=== PATIENT | female | born 1945 ===

== ENCOUNTER 2017-02-12 17:19 | Emergency (ER) | payer MEDICARE ==
[2017-02-12 17:20] VITALS: BMI 26.9
[2017-02-12 18:12] VITALS: BP 133/76; PULSE 78; RESP 16; TEMP 97.7; O2SAT 95
[2017-02-12 18:52] LABS: URINE BILIRUBIN SMALL (NEGATIVE); URINE BLOOD LARGE (NEGATIVE); URINE GLUCOSE (UA) NEGATIVE (NEGATIVE); URINE KETONE TRACE mg/dL (NEGATIVE); URINE LEUKOCYTE ESTERASE MODERATE Leu/uL (NEGATIVE); URINE PROTEIN >=300 mg/dL (<30 mg/dL)
[2017-02-12 19:05] LABS: URINE APPEARANCE CLOUDY (CLEAR); URINE COLOR YELLOW (YELLOW)
[2017-02-12 19:16] LABS: URINE RBC 25 - 30 /hpf (0-2); URINE WBC TNTC /hpf (0-6)
[2017-02-12 19:17] LABS: URINE BACTERIA MANY (NEG)
--- NOTE | 2017-02-12 19:23 | ED PDOC ---
Arrival/HPI - General Chief Complaint: Female Genitourinary Time Seen by Provider: 02/12/17 19:19 Historian: Patient - History of Present Illness Narrative History of Present Illness (Text): 02/12/17 19:20 A 71 year old female presents to the emergency department complaining of suprapubic pain and dysuria for the past few weeks. Patient reports she was seen by her PMD and urologist for same complaints. Patient was placed on Cipro, with no relief of symptoms. Patient denies any fever, chills or any other complaints. PMD: Dr. Mcbride Urologist: Dr. Ma Time/Duration: < month Symptom Course: Unchanged Quality: Other Context: Home Past Medical History - Provider Review Nursing Documentation Reviewed: Yes - Infectious Disease Hx of Infectious Diseases: None - Cardiac Hx Cardiac Disorders: Yes Hx Hypertension: Yes - Pulmonary Hx Respiratory Disorders: No - Neurological Hx Neurological Disorder: No - HEENT Hx HEENT Disorder: No - Renal Hx Renal Disorder: No - Endocrine/Metabolic Hx Endocrine Disorders: No - Hematological/Oncological Hx Blood Disorders: No - Integumentary Hx Dermatological Disorder: No - Musculoskeletal/Rheumatological Hx Musculoskeletal Disorders: Yes Hx Falls: Yes - Gastrointestinal Hx Gastrointestinal Disorders: Yes Hx Gall Bladder Disease: Yes (CHOLECYSTECTOMY) - Genitourinary/Gynecological Hx Genitourinary Disorders: Yes (HYDRONEPHROSIS) - Psychiatric Hx Psychophysiologic Disorder: Yes Hx Substance Use: No Other/Comment: insomnia - Past Surgical History Past Surgical History: No Previous - Surgical History Hx Cholecystectomy: Yes Hx Tubal Ligation: Yes - Anesthesia Hx Anesthesia: Yes Hx Anesthesia Reactions: No Hx Malignant Hyperthermia: No - Suicidal Assessment Feels Threatened In Home Enviroment: No Family/Social History - Physician Review Nursing Documentation Reviewed: Yes Family/Social History: No Known Family HX Smoking Status: Never Smoked Hx Alcohol Use: No Hx Substance Use: No Hx Substance Use Treatment: No Allergies/Home Meds Allergies/Adverse Reactions: Allergies moxifloxacin HCl [From Avelox] Allergy (Verified 02/12/17 18:06) RASH Home Medications: Home Meds Medication Instructions Recorded Confirmed Calcium Carbonate/Vitamin D3 1 tab PO DAILY 10/26/15 02/12/17 [Calcium + Vitamin D Tablet] Naproxen [Naprosyn] 500 mg PO BID 10/26/15 02/12/17 Zolpidem Tartrate [Ambien] 10 mg PO HS 10/26/15 02/12/17 amLODIPine [Norvasc] 5 mg PO DAILY 10/26/15 02/12/17 Physical Exam - Physical Exam Narrative Physical Exam (Text): - Review of Systems Constitutional: Normal. absent: Fatigue, Weight Change, Fevers Eyes: Normal ENT: denies sore throat, denies tristhmus Respiratory: Normal. absent: SOB, Cough, Sputum Cardiovascular: absent: Chest Pain, Palpitations, Syncope Gastrointestinal: (+) Suprapubic pain absent: Diarrhea, Nausea, Vomiting Genitourinary: (+) Dysuria absent: Frequency, Hematuria, vaginal bleeding Musculoskeletal: Normal. absent: Arthralgias, Back Pain, Neck Pain Skin: no rashes, no erythema Neurological: absent: Focal Weakness Endocrine: Normal Hemo/Lymphatic: Normal Psychiatric: No suicidal or homicidal ideations Physical exam Patient appears age appropriate in no distress, speaking full sentences without difficulty - Systems Exam Head: Present: Atraumatic, Normocephalic Pupils: Present: PERRL Extroacular Muscles: Present: EOMI Conjunctiva: Present: Normal Mouth: Present: Moist Mucous Membranes Neck: Present: Normal Range of Motion. No: MIDLINE TENDERNESS, Paraspinal Tenderness Respiratory/Chest: Present: Clear to Auscultation, Good Air Exchange. No: Respiratory Distress, Accessory Muscle Use, Tachypneic Cardiovascular: Present: Regular Rate and Rhythm, Normal S1, S2, Peripheal Pulses Present. No: Murmurs Abdomen: Present: Normal Bowel Sounds. No: Tenderness, Distention, Peritoneal Signs, Rebound, Guarding Back: Present: Normal Inspection. No: Midline Tenderness, Paraspinal Tenderness Upper Extremity: Present: Normal Inspection. No: Cyanosis, Edema Lower Extremity: Present: Normal Inspection. No: Edema Neurological: Present: GCS=15, Speech Normal, cranial nerves II through XII fully intact with no cerebellar abnormality, neurosensory fully intact. No focal neurological deficits. Skin: Present: Warm, Dry, Normal Color. No: Rashes Lymphatic: Present: OX3, NI, NC Psychiatric: Present: Alert, Oriented x 3, Normal Insight, Normal Concentration Vital Signs Reviewed: Yes Vital Signs Temp Pulse Resp BP Pulse Ox 02/12/17 18:12 97.7 F 78 16 133/76 95 Temperature: Afebrile Blood Pressure: Normal Pulse: Regular Respiratory Rate: Normal Appearance: Positive for: Well-Appearing, Non-Toxic, Comfortable Pain Distress: None Mental Status: Positive for: Alert and Oriented X 3 Medical Decision Making ED Course and Treatment: 02/12/17 19:20 Impression: A 71 year old female with suprapubic pain and dysuria for the past 2 weeks. Pt has been on cipro with no symptomatic relief. Physical exam unremarkable. Pt afebrile, well appearing, non-toxic, and in no distress. Plan: -- Urine culture -- Urinalysis -- Reassess and disposition Progress Notes: UA shows infection, likely the cause of pt's symptoms was given Rx for pyridium and macrobid pt informed of pyridium side effects pt also instructed to f/u with Sergey Mcbride and Anil outpatient states she feels comfortable being dc'd home with outpatient f/u Pt states she understands to return to the ER right away for new or worsening symptoms or for inability to f/u with PMD or specialist as instructed. Patient states that she fully agrees with and understands discharge instructions. States that she agrees with the plan and disposition. Verbalized and repeated discharge instructions and plan. I have given the patient opportunity to ask any additional questions. - Lab Interpretations Lab Results: Lab Results 02/12/17 18:42: Urine Color Yellow, Urine Appearance Cloudy, Urine pH 6.0, Ur Specific Fabens >= 1.030, Urine Protein >=300 H, Urine Glucose (UA) Negative, Urine Ketones Trace H, Urine Blood Large H, Urine Nitrate Positive H, Urine Bilirubin Small H, Urine Urobilinogen 1.0 H, Ur Leukocyte Esterase Moderate H, Urine RBC 25 - 30, Urine WBC Tntc, Urine Bacteria Many - Scribe Statement The provider has reviewed the documentation as recorded by the Shahriar Collado Provider Scribe Attestation: All medical record entries made by the Scribjose were at my direction and personally dictated by me. I have reviewed the chart and agree that the record accurately reflects my personal performance of the history, physical exam, medical decision making, and the department course for this patient. I have also personally directed, reviewed, and agree with the discharge instructions and disposition. Disposition/Present on Arrival - Present on Arrival Any Indicators Present on Arrival: No History of DVT/PE: No History of Uncontrolled Diabetes: No Urinary Catheter: No History of Decub. Ulcer: No History Surgical Site Infection Following: None - Disposition Have Diagnosis and Disposition been Completed?: Yes Diagnosis: UTI (urinary tract infection) Disposition: HOME/ ROUTINE Disposition Time: 19:25 Patient Plan: Discharge Condition: GOOD Discharge Instructions (ExitCare): Urinary Tract Infection in Women (ED), Dysuria (ED) Additional Instructions: PLEASE RETURN TO THE EMERGENCY DEPARTMENT FOR NEW OR WORSENING SYMPTOMS. RETURN RIGHT AWAY IF YOU CANNOT FOLLOW UP WITH YOUR PRIMARY CARE DOCTOR, CLINIC, OR SPECIALIST IN 1-2 DAYS. Prescriptions: Nitrofurantoin Macrocrystals [Macrobid] 100 mg PO BID #14 cap Phenazopyridine HCl [Pyridium] 100 mg PO TID #6 tab Referrals: Jacqueline Mcbride MD [Primary Care Provider] - Follow up with primary Tonny Ma MD [Staff Provider] - Follow up with primary Forms: [facility] (Indonesian)
== END 2017-02-12 19:36 | disposition home or self-care (01) ==
LOC: ED 17:19
DX: N39.0 Urinary tract infection, site not specified (principal)

== ENCOUNTER 2017-06-23 12:00 | Inpatient (IN) | payer MEDICARE ==
[2017-06-23 12:01] VITALS: BMI 26.9
--- NOTE | 2017-06-23 12:40 | ED PDOC ---
Arrival/HPI - General Chief Complaint: GI Problem Time Seen by Provider: 06/23/17 12:27 Historian: Patient - History of Present Illness Narrative History of Present Illness (Text): 06/23/17 12:36 71 year old female presents to the Emergency department complaining of bloody stool since yesterday. Patient had noticed blood in her bowel movements once yesterday and once today with diarrhea. Patient reports visiting her PMD last week for a cold and was started on Augmentin. Patient also states she experienced lightheadedness yesterday. Patient denies any nausea, vomiting, abdominal pain, chest pain, shortness of breath, palpitations, back pain, neck pain, headache or any other complaints. Time/Duration: 24 hours Symptom Onset: Gradual Symptom Course: Unchanged Context: Home Associated Symptoms (Text): 06/23/17 12:54 Loose stool with gross blood since yesterday. No abdominal pain nausea or vomiting. She has been on Augmentin for a URI. No chest pain palpitations or dyspnea. Some lightheadedness yesterday. Past Medical History - Provider Review Nursing Documentation Reviewed: Yes - Infectious Disease Hx of Infectious Diseases: None - Reproductive Menopause: No - Cardiac Hx Cardiac Disorders: Yes Hx Hypertension: Yes - Pulmonary Hx Respiratory Disorders: No - Neurological Hx Neurological Disorder: No - HEENT Hx HEENT Disorder: No - Renal Hx Renal Disorder: No - Endocrine/Metabolic Hx Endocrine Disorders: No - Hematological/Oncological Hx Blood Disorders: No - Integumentary Hx Dermatological Disorder: No - Musculoskeletal/Rheumatological Hx Musculoskeletal Disorders: Yes Hx Arthritis: Yes Hx Falls: Yes - Gastrointestinal Hx Gastrointestinal Disorders: Yes Hx Gall Bladder Disease: Yes (CHOLECYSTECTOMY) - Genitourinary/Gynecological Hx Genitourinary Disorders: Yes (HYDRONEPHROSIS) - Psychiatric Hx Psychophysiologic Disorder: Yes Hx Substance Use: No Other/Comment: insomnia - Past Surgical History Past Surgical History: No Previous - Surgical History Hx Cholecystectomy: Yes Hx Tubal Ligation: Yes - Anesthesia Hx Anesthesia: Yes Hx Anesthesia Reactions: No Hx Malignant Hyperthermia: No - Suicidal Assessment Feels Threatened In Home Enviroment: No Family/Social History - Physician Review Nursing Documentation Reviewed: Yes Family/Social History: Unknown Family HX Smoking Status: Never Smoked Hx Alcohol Use: No Hx Substance Use: No Hx Substance Use Treatment: No Allergies/Home Meds Allergies/Adverse Reactions: Allergies moxifloxacin HCl [From Avelox] Allergy (Verified 02/12/17 18:06) RASH Home Medications: Home Meds Medication Instructions Recorded Confirmed Calcium Carbonate/Vitamin D3 1 tab PO DAILY 10/26/15 06/23/17 [Calcium + Vitamin D Tablet] Naproxen [Naprosyn] 500 mg PO BID 10/26/15 06/23/17 Zolpidem Tartrate [Ambien] 10 mg PO HS 10/26/15 06/23/17 amLODIPine [Norvasc] 5 mg PO DAILY 10/26/15 06/23/17 Review of Systems - Physician Review All systems were reviewed & negative as marked: Yes - Review of Systems Respiratory: absent: SOB Cardiovascular: absent: Chest Pain, Palpitations Gastrointestinal: Stool Changes (bloody stool), Diarrhea, Hematochezia. absent : Abdominal Pain, Nausea, Vomiting, Appetite Changes, Hematemesis, Anorexia Musculoskeletal: absent: Back Pain, Neck Pain Neurological: Dizziness (lightheadedness). absent: Headache Physical Exam Vital Signs Reviewed: Yes Vital Signs Temp Pulse Resp BP Pulse Ox 06/23/17 15:00 84 17 106/78 100 06/23/17 13:49 86 17 123/76 100 06/23/17 12:07 98.1 F 80 18 148/76 96 Temperature: Afebrile Blood Pressure: Normal Pulse: Regular Respiratory Rate: Normal Appearance: Positive for: Well-Appearing, Non-Toxic, Comfortable Pain Distress: None Mental Status: Positive for: Alert and Oriented X 3 - Systems Exam Head: Present: Atraumatic, Normocephalic Pupils: Present: PERRL Extroacular Muscles: Present: EOMI Conjunctiva: Present: Normal Mouth: Present: Moist Mucous Membranes Neck: Present: Normal Range of Motion Respiratory/Chest: Present: Clear to Auscultation, Good Air Exchange. No: Respiratory Distress, Accessory Muscle Use Cardiovascular: Present: Regular Rate and Rhythm, Normal S1, S2. No: Murmurs Abdomen: Present: Normal Bowel Sounds, Scars (Right upper quadrant). No: Tenderness, Distention, Peritoneal Signs, Rebound, Guarding Rectal: Present: Occult Blood, Gross Blood, Normal Rectal Tone, Other (guaiac positive). No: Rectal Tenderness, Hemorrhoids, Fissures, Nodule/Mass/Lesions Back: Present: Normal Inspection Upper Extremity: Present: Normal Inspection. No: Cyanosis, Edema Lower Extremity: Present: Normal Inspection. No: Edema Neurological: Present: GCS=15, CN II-XII Intact, Speech Normal, Motor Func Grossly Intact Skin: Present: Warm, Dry, Normal Color. No: Rashes Psychiatric: Present: Alert, Oriented x 3, Normal Insight, Normal Concentration Medical Decision Making ED Course and Treatment: 06/23/17 12:41 Impression: 71 year old female presents to the Emergency department complaining of bloody stool. Plan: -- Chest xray -- EKG -- Labs -- Pantoprazole -- IV fluids -- Reassess and disposition Progress Notes: 06/23/17 13:15 EKG shows normal sinus rhythm rate approximately 70 with a right bundle branch block and no acute ST or T-wave changes - Lab Interpretations Lab Results: 06/23/17 12:19 06/23/17 12:19 Lab Results 06/23/17 12:44: Blood Type O POSITIVE, Antibody Screen Negative, BBK History Checked No verified bt 06/23/17 12:19: Sodium 144, Potassium 3.5 L, Chloride 112 H, Carbon Dioxide 21, Anion Gap 14, BUN 18, Creatinine 0.7, Est GFR ( Amer) > 60, Est GFR (Non- Af Amer) > 60, Random Glucose 95, Calcium 9.5, Total Bilirubin 0.4, AST 40 H, ALT 63 H, Alkaline Phosphatase 96, Lactate Dehydrogenase 586, Total Creatine Kinase 194, Troponin I < 0.01, Total Protein 7.1, Albumin 4.1, Globulin 3.0, Albumin/Globulin Ratio 1.4, Amylase 75, Lipase 120 06/23/17 12:19: PT 11.5, INR 1.00, APTT 27.7 06/23/17 12:19: WBC 7.1, RBC 4.41, Hgb 12.1, Hct 37.5, MCV 85.0, MCH 27.4, MCHC 32.3, RDW 16.2 H, Plt Count 239, MPV 9.7, Gran % 66.1, Lymph % (Auto) 25.5, [place] % (Auto) 5.7, Eos % (Auto) 2.7, Baso % (Auto) 0.0, Gran # 4.67, Lymph # 1.8 , [place] # 0.4, Eos # 0.2, Baso # 0.00 - RAD Interpretation Narrative RAD Interpretations (Text): 06/23/17 16:42 Chest X-Ray Fun House Attendant: Jase Esquivel MD IMPRESSION: No active disease Radiology Orders: 06/23/17 12:38 CHEST PORTABLE [RAD] Stat - Medication Orders Current Medication Orders: Amlodipine Besylate (Norvasc) 5 mg PO DAILY NUNU Last Admin: 06/23/17 15:00 Dose: Not Given Non-Admin Reason: BP Parameters Not Met MAR Pulse and Blood Pressure Document 06/23/17 15:00 SE (Rec: 06/23/17 15:00 SE [id number]) Pulse Pulse Rate (60-90 beats/min) 84 Blood Pressure Blood Pressure (100/60-150/90 mm Hg) 106/78 Metronidazole (Flagyl) 500 mg in 100 mls @ 100 mls/hr IVPB Q8 NUNU PRN Reason: Protocol Last Admin: 06/23/17 16:00 Dose: 100 mls/hr eMAR Start Stop Document 06/23/17 16:00 SE (Rec: 06/23/17 16:00 SE [id number]) Intravenous Solution Start Date 06/23/17 Start Time 16:00 Ceftriaxone Sodium (Rocephin 1 Gram Ivpb) 1 gm in 100 mls @ 100 mls/hr IVPB DAILY NUNU PRN Reason: Protocol Last Admin: 06/23/17 14:55 Dose: 100 mls/hr eMAR Start Stop Document 06/23/17 14:55 SE (Rec: 06/23/17 14:55 SE [id number]) Intravenous Solution Start Date 06/23/17 Start Time 14:55 Sodium Chloride (Sodium Chloride 0.9%) 1,000 mls @ 100 mls/hr IVB .Q10H NUNU Last Admin: 06/23/17 14:56 Dose: 100 mls/hr Pantoprazole Sodium (Protonix Inj) 40 mg IVP DAILY NUNU Zolpidem Tartrate (Ambien) 10 mg PO HS NUNU PRN Reason: Protocol Discontinued Medications Pantoprazole Sodium (Protonix Inj) 80 mg IVP STAT STA Stop: 06/23/17 12:39 Last Admin: 06/23/17 12:47 Dose: 80 mg IVP Administration Document 06/23/17 12:47 SE (Rec: 06/23/17 12:59 SE [id number]) Charges for Administration # of IVP Administrations 1 - Scribe Statement The provider has reviewed the documentation as recorded by the Scribe Pop Funk All medical record entries made by the Scribe were at my direction and personally dictated by me. I have reviewed the chart and agree that the record accurately reflects my personal performance of the history, physical exam, medical decision making, and the department course for this patient. I have also personally directed, reviewed, and agree with the discharge instructions and disposition. Disposition/Present on Arrival - Present on Arrival Any Indicators Present on Arrival: No History of DVT/PE: No History of Uncontrolled Diabetes: No Urinary Catheter: No History of Decub. Ulcer: No History Surgical Site Infection Following: None - Disposition Have Diagnosis and Disposition been Completed?: Yes Diagnosis: Gastrointestinal hemorrhage Disposition: HOSPITALIZED Disposition Time: 13:38 Patient Plan: Observation Patient Problems: Current Active Problems Problem Status Onset Gastrointestinal hemorrhage Acute Condition: GOOD
[2017-06-23 12:50] LABS: EOS # 0.2 (0.0-0.7); EOS % 2.7 % (1.5-5.0); GRAN # 4.67 (1.4-6.5); GRAN % 66.1 % (50.0-68.0); HEMOGLOBIN 12.1 g/dL (12.0-16.0); LYMPH # 1.8 (1.2-3.4); LYMPH % 25.5 % (22.0-35.0); MEAN CORPUSCULAR HEMOGLOBIN 27.4 pg (25.0-35.0); MEAN CORPUSCULAR HGB CONC 32.3 g/dl (31.0-37.0); MEAN PLATELET VOLUME 9.7 fl (7.0-11.0); MONO # 0.4 (0.1-0.6); MONO % 5.7 % (1.0-6.0); RBC 4.41 10^6/uL (3.5-6.1); RED CELL DISTRIBUTION WIDTH 16.2 % (11.5-14.5); WHITE BLOOD COUNT 7.1 10^3/ul (4.5-11.0)
[2017-06-23 12:59] LABS: PARTIAL THROMBOPLASTIN TIME 27.7 Seconds (25.1-36.5); PROTHROMBIN TIME 11.5 SECONDS (9.4-12.5)
[2017-06-23 13:06] LABS: ALB/GLOB RATIO 1.4 (1.1-1.8); ALBUMIN 4.1 g/dL (3.0-4.8); ALT/SGPT 63 U/L (7-56); AMYLASE 75 U/L (35-125); AST/SGOT 40 U/L (14-36); BLOOD UREA NITROGEN 18 mg/dL (7-21); CALCIUM 9.5 mg/dL (8.4-10.5); GFR AFRICAN-AMERICAN > 60; GFR NON-AFRICAN AMERICAN > 60; LIPASE 120 U/L (23-300)
[2017-06-23 13:18] LABS: TROPONIN I < 0.01 ng/mL
--- NOTE | 2017-06-23 14:26 | RAD ---
HISTORY: gib COMPARISON: 08/27/2014 FINDINGS: LUNGS: No active pulmonary disease. PLEURA: No significant pleural effusion identified, no pneumothorax apparent. CARDIOVASCULAR: Normal. OSSEOUS STRUCTURES: No significant abnormalities. VISUALIZED UPPER ABDOMEN: Normal. OTHER FINDINGS: None. IMPRESSION: No active disease.
[2017-06-23] MEDS: cefTRIAXone 1 gm 1 GM/100 ML BAG IVPB SCH (14:55)
[2017-06-23] MEDS: Sodium Chloride 0.9% 1,000 ML IVB SCH (14:56)
[2017-06-23] MEDS: metroNIDAZOLE IV 500 mg/100 ml 500 MG/100 ML BAG IVPB SCH (16:00)
--- NOTE | 2017-06-23 20:41 | CARD ---
APPROVED REPORT EKG Measurement Heart [id number] <Conclusion> Normal sinus rhythm Right bundle branch block Abnormal ECG
--- NOTE | 2017-06-24 00:22 | HP ---
HISTORY OF PRESENT ILLNESS: Ms. Cummings is a 71-year-old female admitted to the hospital with dark bloody stools for 1 day. She had cough and cold symptoms and was started on Augmentin. She started having diarrhea after taking Augmentin. She noticed dark colored stools for past 1 day. She is also having mild abdominal pain. She has history of hypertension, blood pressure control with current medications. She also has history of osteoarthritis and no current issues. PAST MEDICAL HISTORY: Hypertension, osteoarthritis, and hydronephrosis. History of fall. Insomnia. PERSONAL HISTORY: Nonsmoker. No history of alcohol abuse. SOCIAL HISTORY: She lives at home. FAMILY HISTORY: Noncontributory. ALLERGIES: MOXIFLOXACIN CAUSES RASH. HOME MEDICATIONS: Calcium, vitamin D, and naproxen. Ambien 10 mg p.o. at bedtime and Norvasc 5 mg daily. REVIEW OF SYSTEMS: As per HPI. Rest of 12-point review of systems reviewed and negative. PHYSICAL EXAMINATION: GENERAL: Comfortable in bed, in no acute distress. VITAL SIGNS: Temperature is 98.1, heart rate is 80 per minute, respiratory is 18 per minute, blood pressure is 140/70, and pulse oximetry is 96% room air. HEENT: Normal. NECK: No lymphadenopathy. CHEST: Air entry present and equal bilaterally. No added sound. CARDIOVASCULAR: S1 and S2 normal. No murmur. No gallop. GASTROINTESTINAL: Abdomen is soft and nontender. No hepatosplenomegaly. EXTREMITIES: No edema. Spine nontender. SKIN: No petechia and no rash. LABORATORY DATA: White count of 7.1, hemoglobin of 12.1, hematocrit of 37.5, and platelets of 239. Sodium of 144, potassium of 3.5, BUN of 18, creatinine of 0.7, and glucose of 95. IMAGING DATA: Chest x-ray No infiltrate. ASSESSMENT/PLAN 1. Colitis. 2. Gastrointestinal bleed. 3. Anemia. 4. Hypertension. PLAN: She will be admitted to the hospital. IV fluids at 100 mL an hour. Stool occult positive in the ER. We will give Protonix 40 mg IV daily, ceftriaxone 1 g daily, and Flagyl and 500 mg q. 8 hours. We will continue antihypertensive Norvasc 5 mg daily, and Ambien 10 mg p.o. at bedtime. We will do iron studies, B12, and folate level. GI consultation with Dr. Fountain requested. Nadia Hazel MD
[2017-06-24] MEDS: metroNIDAZOLE IV 500 mg/100 ml 500 MG/100 ML BAG IVPB SCH ×4 (00:58→22:02)
[2017-06-24] MEDS: Sodium Chloride 0.9% 1,000 ML IVB SCH ×2 (01:00→16:56)
[2017-06-24 08:04] LABS: IRON 60 ug/dL (45-180)
[2017-06-24 08:14] LABS: % IRON SATURATION 19 % (20-55); TOTAL IRON BINDING CAPACITY 321 ug/dL (265-497)
[2017-06-24 08:15] LABS: BASO # 0.01 K/mm3 (0.0-2.0); BASO % 0.2 % (0.0-3.0); EOS # 0.2 (0.0-0.7); EOS % 3.7 % (1.5-5.0); GRAN # 3.1 (1.4-6.5); GRAN % 59.9 % (50.0-68.0); HEMOGLOBIN 11.5 g/dL (12.0-16.0); LYMPH # 1.6 (1.2-3.4); LYMPH % 30.4 % (22.0-35.0); MEAN CELL VOLUME 85.6 fl (80.0-105.0); MEAN CORPUSCULAR HEMOGLOBIN 27.6 pg (25.0-35.0); MEAN CORPUSCULAR HGB CONC 32.2 g/dl (31.0-37.0); MEAN PLATELET VOLUME 9.9 fl (7.0-11.0); MONO # 0.3 (0.1-0.6); MONO % 5.8 % (1.0-6.0); RBC 4.17 10^6/uL (3.5-6.1); RED CELL DISTRIBUTION WIDTH 16.1 % (11.5-14.5); WHITE BLOOD COUNT 5.2 10^3/ul (4.5-11.0)
[2017-06-24 08:17] LABS: BLOOD UREA NITROGEN 9 mg/dL (7-21); CALCIUM 8.5 mg/dL (8.4-10.5); GFR AFRICAN-AMERICAN > 60; GFR NON-AFRICAN AMERICAN > 60
[2017-06-24] MEDS ORDERED: Potassium Chloride 40 mEq/30 ml LIQ UD PO ONE (09:55)
[2017-06-24 12:42] LABS: FERRITIN 27.1 ng/mL
--- NOTE | 2017-06-24 14:54 | CP.PCM.CON ---
History of Present Illness - History of Present Illness History of Present Illness: Seen and examined at the bedside earlier today, chart reviewed. Request for GI consult is for GI bleed. HPI: This is a 71-year-old female with a past medical history of osteoarthritis , hypertension and recent cough and cold on Augmentin came to the emergency room with complaints of dark-colored stool. The patient reported that she was taking Augmentin and started having diarrhea. She noticed on Saturday and Saturday she had loose stool that was bright red blood. She denies nausea, vomiting, or abdominal pain. Denies any unintentional weight loss or anorexia. The patient does admit to having symptoms of reflux takes [place] at least 3-4 times a week. In the past she also was on Naprosyn for many years and took it as needed but not on a regular basis. This morning the patient does report having a bowel movement it appeared dark maroon and was pasty.She recently was switched over to Celebrex about a month ago and takes it when necessary but reports not on a regular basis. She denies ever having had an endoscopy or colonoscopy. Past medical history: Osteoarthritis, hypertension, history of fall, insomnia, hydronephrosis Surgical history: Cholecystectomy, denies any cardiac procedures Social history: Denies EtOH, smoking or drug use Family history: Noncontributory Allergies: Moxifloxacin Medications: Reviewed as per MAR ROS: Systems reviewed and positive finding see HPI. Past Patient History - Infectious Disease Hx of Infectious Diseases: None - Past Social History Smoking Status: Never Smoked - CARDIAC Hx Cardiac Disorders: Yes Hx Hypertension: Yes - PULMONARY Hx Respiratory Disorders: No - NEUROLOGICAL Hx Neurological Disorder: No - HEENT Hx HEENT Problems: No - RENAL Hx Chronic Kidney Disease: No - ENDOCRINE/METABOLIC Hx Endocrine Disorders: No - HEMATOLOGICAL/ONCOLOGICAL Hx Blood Disorders: No - INTEGUMENTARY Hx Dermatological Problems: No - MUSCULOSKELETAL/RHEUMATOLOGICAL Hx Falls: Yes - GASTROINTESTINAL Hx Gastrointestinal Disorders: Yes Hx Gall Bladder Disease: Yes (CHOLECYSTECTOMY) - GENITOURINARY/GYNECOLOGICAL Hx Genitourinary Disorders: Yes (HYDRONEPHROSIS) - PSYCHIATRIC Hx Psychophysiologic Disorder: Yes Hx Substance Use: No Other/Comment: insomnia - SURGICAL HISTORY Hx Cholecystectomy: Yes - ANESTHESIA Hx Anesthesia: Yes Hx Anesthesia Reactions: No Hx Malignant Hyperthermia: No Meds Allergies/Adverse Reactions: Allergies Allergy/AdvReac Type Severity Reaction Status Date / Time moxifloxacin HCl Allergy RASH Verified 02/12/17 18:06 [From Avelox] - Medications Medications: Current Medications Amlodipine Besylate (Norvasc) 5 mg PO DAILY [facility] Last Admin: 06/24/17 10:22 Dose: 5 mg Metronidazole (Flagyl) 500 mg in 100 mls @ 100 mls/hr IVPB Q8 [facility] PRN Reason: Protocol Last Admin: 06/24/17 05:14 Dose: 100 mls/hr Ceftriaxone Sodium (Rocephin 1 Gram Ivpb) 1 gm in 100 mls @ 100 mls/hr IVPB DAILY [facility] PRN Reason: Protocol Last Admin: 06/23/17 14:55 Dose: 100 mls/hr Sodium Chloride (Sodium Chloride 0.9%) 1,000 mls @ 100 mls/hr IVB .Q10H [facility] Last Admin: 06/24/17 01:00 Dose: 100 mls/hr Magnesium Citrate (Citrate Of Mag) 300 ml PO ONCE ONE Stop: 06/24/17 16:01 Pantoprazole Sodium (Protonix Inj) 40 mg IVP DAILY [facility] Zolpidem Tartrate (Ambien) 10 mg PO HS [facility]U PRN Reason: Protocol Last Admin: 06/24/17 04:57 Dose: Not Given Physical Exam - Constitutional Appears: No Acute Distress - Head Exam Head Exam: NORMOCEPHALIC - Eye Exam Eye Exam: Normal appearance. absent: Scleral icterus - ENT Exam ENT Exam: Mucous Membranes Moist - Neck Exam Neck exam: Positive for: Normal Inspection - Respiratory Exam Respiratory Exam: Decreased Breath Sounds, NORMAL BREATHING PATTERN. absent: Rales, Wheezes, Respiratory Distress - Cardiovascular Exam Cardiovascular Exam: +S1, +S2 - GI/Abdominal Exam GI & Abdominal Exam: Normal Bowel Sounds, Soft. absent: Guarding, Organomegaly , Rebound, Tenderness - Rectal Exam Additional comments: Refuse patient's that she had rectal exam in ER. - Extremities Exam Extremities exam: Positive for: pedal pulses present. Negative for: calf tenderness, pedal edema - Neurological Exam Neurological exam: Alert, CN II-XII Intact, Oriented x3 - Skin Skin Exam: Dry, Warm Results - Vital Signs Recent Vital Signs: Last Vital Signs Temp 97.5 F L 06/24/17 08:00 Pulse 59 L 06/24/17 08:00 Resp 22 06/24/17 08:00 BP 133/74 06/24/17 08:00 Pulse Ox 97 06/24/17 08:00 - Labs Result Diagrams: 06/24/17 07:20 06/24/17 07:20 Labs: Laboratory Results - last 24 hr 06/23/17 06/24/17 06/24/17 14:14 07:20 07:20 WBC 5.2 D RBC 4.17 Hgb 11.5 L Hct 35.7 L MCV 85.6 MCH 27.6 MCHC 32.2 RDW 16.1 H Plt Count 233 MPV 9.9 Gran % 59.9 Lymph % (Auto) 30.4 Me[place] % (Auto) 5.8 Eos % (Auto) 3.7 Baso % (Auto) 0.2 Gran # 3.10 Lymph # 1.6 Meade # 0.3 Eos # 0.2 Baso # 0.01 Sodium 143 Potassium 3.4 L Chloride 112 H Carbon Dioxide 22 Anion Gap 12 BUN 9 Creatinine 0.6 L Est GFR ( Amer) > 60 Est GFR (Non-Af Amer) > 60 Random Glucose 97 Calcium 8.5 Iron TIBC % Saturation Ferritin 27.1 Blood Type Confirm O POSITIVE 06/24/17 07:20 WBC RBC Hgb Hct MCV MCH MCHC RDW Plt Count MPV Gran % Lymph % (Auto) Meade % (Auto) Eos % (Auto) Baso % (Auto) Gran # Lymph # Meade # Eos # Baso # Sodium Potassium Chloride Carbon Dioxide Anion Gap BUN Creatinine Est GFR ( Amer) Est GFR (Non-Af Amer) Random Glucose Calcium Iron 60 TIBC 321 % Saturation 19 L Ferritin Blood Type Confirm Assessment & Plan - Assessment and Plan (Free Text) Assessment: Assessment: GI bleed Rule out colitis, history of recent antibiotic use Anemia Hypertension Osteoarthritis history of NSAID use Plan: Plan for flex sigmoidoscopy tomorrow, patient will receive a dose of magnesium citrate Trend H&H Continue Protonix daily Continue clear liquid Pending stool for C. difficile On ceftriaxone and Flagyl Thank you for this consult and for allowing us to participate in your patient's care, further recommendations based upon clinical course. Seen and discussed with Dr. Merlos who is covering for Dr. Fountain.
[2017-06-24] MEDS: Magnesium Citrate Oral SOL (300 ml) PO ONE ×2 (16:42→16:57)
--- NOTE | 2017-06-24 21:16 | CP.PCM.PN ---
Subjective - Date & Time of Evaluation Date of Evaluation: 06/24/17 Time of Evaluation: 21:15 - Subjective Subjective: S:Patient was seen at bedside. She requested something to calm her down as she is going for surgical procedure in the morning. Has no other complaints. Medical record was reviewed. O: Last Vital Signs 3 Temp 97.9 F 06/24/17 16:00 Pulse 69 06/24/17 16:00 Resp 20 06/24/17 16:00 BP 124/72 06/24/17 16:00 Pulse Ox 97 06/24/17 16:00 Awake, alert , not in distress. LUNGS: Normal breathing pattern. A:Anxiety. P:Xanax 0.25 mg PO x 1. Objective - Vital Signs/Intake and Output Vital Signs (last 24 hours): Temp Pulse Resp BP Pulse Ox 97.9 F 69 20 124/72 97 06/24/17 16:00 06/24/17 16:00 06/24/17 16:00 06/24/17 16:00 06/24/17 16:00 - Medications Medications: Current Medications Amlodipine Besylate (Norvasc) 5 mg PO DAILY [facility] Last Admin: 06/24/17 10:22 Dose: 5 mg Metronidazole (Flagyl) 500 mg in 100 mls @ 100 mls/hr IVPB Q8 [facility] PRN Reason: Protocol Last Admin: 06/24/17 16:42 Dose: 100 mls/hr Ceftriaxone Sodium (Rocephin 1 Gram Ivpb) 1 gm in 100 mls @ 100 mls/hr IVPB DAILY [facility] PRN Reason: Protocol Last Admin: 06/23/17 14:55 Dose: 100 mls/hr Sodium Chloride (Sodium Chloride 0.9%) 1,000 mls @ 100 mls/hr IVB .Q10H [facility] Last Admin: 06/24/17 16:56 Dose: 100 mls/hr Pantoprazole Sodium (Protonix Inj) 40 mg IVP DAILY [facility] Last Admin: 06/24/17 16:43 Dose: 40 mg Zolpidem Tartrate (Ambien) 10 mg PO HS [facility] PRN Reason: Protocol Last Admin: 06/24/17 04:57 Dose: Not Given - Labs Labs: 06/24/17 07:20 06/24/17 07:20 PT 11.5 SECONDS (9.4-12.5) 06/23/17 12:19 INR 1.00 (0.93-1.08) 06/23/17 12:19 APTT 27.7 Seconds (25.1-36.5) 06/23/17 12:19
[2017-06-24] MEDS: cefTRIAXone 1 gm 1 GM/100 ML BAG IVPB SCH (21:17)
[2017-06-25] MEDS: Sodium Chloride 0.9% 1,000 ML IVB SCH (04:46)
[2017-06-25] MEDS: metroNIDAZOLE IV 500 mg/100 ml 500 MG/100 ML BAG IVPB SCH ×3 (06:02→21:52)
[2017-06-25 07:34] LABS: EOS # 0.1 (0.0-0.7); EOS % 2.3 % (1.5-5.0); GRAN # 3.83 (1.4-6.5); GRAN % 67.2 % (50.0-68.0); HEMOGLOBIN 11.4 g/dL (12.0-16.0); LYMPH # 1.5 (1.2-3.4); LYMPH % 26.5 % (22.0-35.0); MEAN CELL VOLUME 84.7 fl (80.0-105.0); MEAN CORPUSCULAR HEMOGLOBIN 26.8 pg (25.0-35.0); MEAN CORPUSCULAR HGB CONC 31.7 g/dl (31.0-37.0); MEAN PLATELET VOLUME 9.3 fl (7.0-11.0); MONO # 0.2 (0.1-0.6); RBC 4.25 10^6/uL (3.5-6.1); RED CELL DISTRIBUTION WIDTH 15.6 % (11.5-14.5); WHITE BLOOD COUNT 5.7 10^3/ul (4.5-11.0)
[2017-06-25 08:29] LABS: BLOOD UREA NITROGEN 6 mg/dL (7-21); CALCIUM 8.5 mg/dL (8.4-10.5); GFR AFRICAN-AMERICAN > 60; GFR NON-AFRICAN AMERICAN > 60
--- NOTE | 2017-06-25 09:01 | CON ---
ADDENDUM DATE: 06/24/2017 I personally examined this patient and reviewed her laboratory data. This is a 71-year-old female who comes to the hospital with diarrhea, with rectal bleeding. She has been on antibiotics recently. One must rule out an acute supplemented colitis versus malignancy versus pseudomembranous colitis. I agree with Zaira Tello' diagnoses and plan. Plan for flexible sigmoidoscopy in the morning. Jaden Merlos MD
[2017-06-25] MEDS: cefTRIAXone 1 gm 1 GM/100 ML BAG IVPB SCH (09:38)
[2017-06-25] MEDS ORDERED: Propofol 10 mg/ml Inj (20 ML) ONE (12:31)
[2017-06-25] MEDS ORDERED: Barium Sulfate Susp 2.1% w/v, 2.0% w/w 450 mL Bottle PO ONE (13:03)
--- NOTE | 2017-06-25 15:34 | CP.PCM.CON ---
History of Present Illness - History of Present Illness History of Present Illness: Surgery Consult: Dr. Contreras Pt is a 71F with PMHx significant for HTN & osteoarthritis who presented to [facility] [place] complaints of bloody diarrhea. As per the pt, she wasn't feeling well last week and went to her PMD who started her on Augmentin. However, this past saturday she started having bloody diarrhea and decided to come to the hospital for evaluation. Pt states she did not have any other symptoms such as N/V. Pt admits to taking celebrex for her arthritis occasionally and states she has never had a colonoscopy/endoscopy done in the past. GI consult was placed and pt was taken for flexible sigmoidoscopy today which showed a nearly obstructing mass in the sigmoid colon. Surgery consulted to evaluate. Currently, pt is sitting comfortably in her bed. She states she doesn't have any abdominal pain but does have some discomfort in the lower quadrants. Pt admits to tolerating her diet at home and states prior to having diarrhea, she was having regular BMs. She denies any N/V, F/C, chest pain, SOB or recent weight loss. PMHx: HTN, osteoarthritis PSHx: cholecystectomy, tubal ligation SocialHx: denies EtOH, smoking/drugs Allergies: as listed in medical record Review of Systems - Review of Systems All systems: reviewed and no additional remarkable complaints except (as per HPI ) Past Patient History - Infectious Disease Hx of Infectious Diseases: None - Past Social History Smoking Status: Never Smoked - CARDIAC Hx Hypertension: Yes - HEMATOLOGICAL/ONCOLOGICAL Hx Blood Transfusions: No - GASTROINTESTINAL Hx Gall Bladder Disease: Yes (CHOLECYSTECTOMY) - PSYCHIATRIC Hx Psychophysiologic Disorder: Yes Other/Comment: insomnia - SURGICAL HISTORY Hx Surgeries: Yes Hx Cholecystectomy: Yes Hx Tubal Ligation: Yes - ANESTHESIA Hx Anesthesia: Yes Hx Anesthesia Reactions: No Hx Malignant Hyperthermia: No Meds Allergies/Adverse Reactions: Allergies Allergy/AdvReac Type Severity Reaction Status Date / Time Iodine and Iodide Containing Allergy RASH Verified 06/25/17 12:01 Produc levofloxacin [From Levaquin] Allergy RASH Verified 06/25/17 12:01 moxifloxacin HCl Allergy RASH Verified 02/12/17 18:06 [From Avelox] - Medications Medications: Current Medications Amlodipine Besylate (Norvasc) 5 mg PO DAILY [facility] Last Admin: 06/25/17 09:38 Dose: 5 mg Metronidazole (Flagyl) 500 mg in 100 mls @ 100 mls/hr IVPB Q8 [facility] PRN Reason: Protocol Last Admin: 06/25/17 15:00 Dose: 100 mls/hr Ceftriaxone Sodium (Rocephin 1 Gram Ivpb) 1 gm in 100 mls @ 100 mls/hr IVPB DAILY [facility] PRN Reason: Protocol Last Admin: 06/25/17 09:38 Dose: 100 mls/hr Sodium Chloride (Sodium Chloride 0.9%) 1,000 mls @ 100 mls/hr IVB .Q10H [facility] Last Admin: 06/25/17 04:46 Dose: 100 mls/hr Sodium Chloride (Sodium Chloride 0.9%) 1,000 mls @ 100 mls/hr IV .Q10H [facility] Pantoprazole Sodium (Protonix Inj) 40 mg IVP DAILY [facility] Last Admin: 06/25/17 09:38 Dose: 40 mg Zolpidem Tartrate (Ambien) 10 mg PO HS [facility] PRN Reason: Protocol Last Admin: 06/25/17 04:46 Dose: Not Given Physical Exam - Constitutional Appears: Well, No Acute Distress - Head Exam Head Exam: ATRAUMATIC, NORMOCEPHALIC - Eye Exam Eye Exam: Normal appearance - ENT Exam ENT Exam: Mucous Membranes Moist - Respiratory Exam Respiratory Exam: NORMAL BREATHING PATTERN - Cardiovascular Exam Cardiovascular Exam: RRR - GI/Abdominal Exam GI & Abdominal Exam: Soft. absent: Distended, Guarding, Rebound, Tenderness - Rectal Exam Rectal Exam: Deferred - Extremities Exam Extremities exam: Positive for: pedal pulses present. Negative for: tenderness - Neurological Exam Neurological exam: Alert, Oriented x3 - Skin Skin Exam: Dry, Warm Results - Vital Signs Recent Vital Signs: Last Vital Signs Temp 98.4 F 06/25/17 13:35 Pulse 62 06/25/17 13:35 Resp 17 06/25/17 13:35 BP 138/76 06/25/17 13:35 Pulse Ox 99 06/25/17 13:35 - Labs Result Diagrams: 06/25/17 06:30 06/25/17 06:30 Assessment & Plan - Assessment and Plan (Free Text) Assessment: 71F with partially obstructing sigmoid colon mass as seen on flex sig Plan: - will f/u CT chest/abd/pelvis for metastatic eval - had a long conversation with pt and her daughter at bedside regarding surgery , at this time they would like to discuss with other family members regarding pt 's care and whether or not they would take her to [facility] - at this time, family seems overwhelmed with her possible diagnosis and needs some time to process it all - we will discuss surgical options with the family and the pt in the next few days, once we have the results of the CT scan and once family has a better idea about what they would like to do - currently, pt is not clinically obstructed and can have CLD from surgical standpoint, if amenable we will prepare her for OR this week for possible low anterior resection - plan discussed with Dr. Ben Hansen, PGY-3 Surgery
--- NOTE | 2017-06-25 18:38 | CT ---
PROCEDURE: CT Chest, Abdomen and Pelvis without intravenous contrast HISTORY: Gastrointestinal hemorrhage COMPARISON: 01/12/2016 CT abdomen and pelvis TECHNIQUE: Oral contrast only. Radiation dose: Total exam DLP = 898.82 mGy-cm. This CT exam was performed using one or more of the following dose reduction techniques: Automated exposure control, adjustment of the mA and/or kV according to patient size, and/or use of iterative reconstruction technique. FINDINGS: CT CHEST WITHOUT CONTRAST: LUNGS: Clear. No nodule, mass or consolidation. MEDIASTINUM: Unremarkable. Normal caliber aorta and pulmonary arterial trunk. Normal size heart. LYMPH NODES: Unremarkable. PLEURA: Unremarkable. No pneumothorax. No pleural fluid. BONES: Unremarkable. OTHER FINDINGS: Enlarged left thyroid lobe. Elective ultrasound recommended. CT ABDOMEN AND PELVIS: LIVER: Unremarkable. No gross lesion or ductal dilatation. GALLBLADDER AND BILE DUCTS: A normal gallbladder is not visualized. PANCREAS: Unremarkable. No gross lesion or ductal dilatation. SPLEEN: Unremarkable. ADRENALS: Unremarkable. No mass. KIDNEYS AND URETERS: Unremarkable. No hydronephrosis. No solid mass. VASCULATURE: Unremarkable. No aortic aneurysm. BOWEL: Mural thickening of the descending colon are, sigmoid and rectum consistent with colitis. This is most severe in the distal descending colon. Diverticulosis without an acute inflammatory component or other associated pathologic process. APPENDIX: Normal appendix. PERITONEUM: Unremarkable. No free fluid. No free air. LYMPH NODES: Unremarkable. No enlarged lymph nodes. BLADDER: Unremarkable. REPRODUCTIVE: Unremarkable. BONES: No acute fracture. OTHER FINDINGS: None. IMPRESSION: Acute colitis primarily affecting distal descending colon, sigmoid and rectum. Additional benign and/or incidental findings described above.
[2017-06-26] MEDS: metroNIDAZOLE IV 500 mg/100 ml 500 MG/100 ML BAG IVPB SCH ×3 (05:58→22:54)
[2017-06-26] MEDS: Sodium Chloride 0.9% 1,000 ML IV SCH ×2 (08:23→23:04)
[2017-06-26 09:55] LABS: HEMOGLOBIN 12.2 g/dL (12.0-16.0); MEAN CELL VOLUME 84.2 fl (80.0-105.0); MEAN CORPUSCULAR HEMOGLOBIN 27.5 pg (25.0-35.0); MEAN CORPUSCULAR HGB CONC 32.6 g/dl (31.0-37.0); MEAN PLATELET VOLUME 9.3 fl (7.0-11.0); RBC 4.44 10^6/uL (3.5-6.1); RED CELL DISTRIBUTION WIDTH 15.4 % (11.5-14.5); WHITE BLOOD COUNT 6.8 10^3/ul (4.5-11.0)
[2017-06-26 10:14] LABS: BLOOD UREA NITROGEN 8 mg/dL (7-21); CALCIUM 9.1 mg/dL (8.4-10.5); GFR AFRICAN-AMERICAN > 60; GFR NON-AFRICAN AMERICAN > 60
[2017-06-26] MEDS ORDERED: Potassium Chloride 20 mEq ER Tab PO ONE (10:44)
[2017-06-26] MEDS: cefTRIAXone 1 gm 1 GM/100 ML BAG IVPB SCH (12:11)
[2017-06-26] MEDS: Vancomycin 25 MG/ML PO SCH ×5 (12:12→22:55)
--- NOTE | 2017-06-26 12:44 | PN ---
DATE: 06/26/2017 SUBJECTIVE: The patient is sitting up in a chair. She has been visited by numerous family members. She denies any abdominal pain, rectal bleeding or diarrhea. MEDICATIONS: Currently include Ambien 10 mg at bedtime, Flagyl 500 mg IV q. 8 hours, Norvasc 5 mg once a day, pantoprazole 40 mg IV daily, ceftriaxone 1 g daily, vancomycin 250 mg p.o. four times a day, Xanax 0.25 mg q. 6 hours. PHYSICAL EXAMINATION: VITAL SIGNS: Reveal temperature of 98.6, blood pressure 145/76, heart rate 64. HEENT: Reveal sclerae to be white. Conjunctivae pink. NECK: Supple. CHEST: Lungs are clear. HEART: Exam reveals regular rate and rhythm. ABDOMEN: Soft, nontender. EXTREMITIES: Show no edema. LABORATORY DATA: Reveal white blood cell count 6.8, hemoglobin 12.2. Chemistries reveal potassium of 3.4. CEA of 1.9. CT scan of the abdomen and pelvis reveal mural thickening of the descending and sigmoid colon. There is no obvious liver metastasis. IMPRESSION: 1. 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 2. Pseudomembranous colitis with positive Clostridium difficile antigen and mural thickening on CT scan. RECOMMENDATIONS: 1. We would continue vancomycin 250 mg p.o. four times a day. 2. Patient and family are going to continue their treatment at [facility]. The patient's family had numerous questions which I answered at the bedside. I informed them that the pseudomembranous colitis should be treated before the patient has surgery. She will need a complete colonoscopy once she has recuperated from her colon cancer resection, and I will have her follow up with Dr. Fountain who is a requesting computer systems consultant. Jaden Merlos MD
--- NOTE | 2017-06-26 13:29 | CP.PCM.PN ---
Subjective - Date & Time of Evaluation Date of Evaluation: 06/26/17 Time of Evaluation: 09:00 - Subjective Subjective: Surgery: Dr. Contreras Pt seen and examined. No acute overnight events. Pt states she feels well and denies any abdominal pain. She also states her diarrhea has resolved and she no longer has blood per rectum. Tolerating liquid diet and denies N/V, F/C. Objective - Vital Signs/Intake and Output Vital Signs (last 24 hours): Temp Pulse Resp BP Pulse Ox 98.6 F 64 20 145/76 97 06/26/17 07:00 06/26/17 07:00 06/26/17 07:00 06/26/17 07:00 06/26/17 07:00 Intake and Output: 06/26/17 06/26/17 06:59 18:59 Intake Total 540 Balance 540 - Medications Medications: Current Medications Alprazolam (Xanax) 0.25 mg PO Q6 PRN; Protocol PRN Reason: Anxiety Stop: 07/03/17 00:01 Last Admin: 06/25/17 21:53 Dose: 0.25 mg Amlodipine Besylate (Norvasc) 5 mg PO DAILY [facility] Last Admin: 06/26/17 12:11 Dose: 5 mg Metronidazole (Flagyl) 500 mg in 100 mls @ 100 mls/hr IVPB Q8 [facility] PRN Reason: Protocol Last Admin: 06/26/17 05:58 Dose: 100 mls/hr Ceftriaxone Sodium (Rocephin 1 Gram Ivpb) 1 gm in 100 mls @ 100 mls/hr IVPB DAILY [facility] PRN Reason: Protocol Last Admin: 06/26/17 12:11 Dose: 100 mls/hr Sodium Chloride (Sodium Chloride 0.9%) 1,000 mls @ 100 mls/hr IV .Q10H [facility] Last Admin: 06/26/17 08:23 Dose: 100 mls/hr Pantoprazole Sodium (Protonix Inj) 40 mg IVP DAILY [facility] Last Admin: 06/26/17 12:11 Dose: 40 mg Vancomycin HCl (Vancocin 25 Mg/Ml (Oral Use)) 250 mg PO QID [facility] PRN Reason: Protocol Last Admin: 06/26/17 12:12 Dose: 250 mg Zolpidem Tartrate (Ambien) 10 mg PO HS [facility] PRN Reason: Protocol Last Admin: 06/25/17 23:42 Dose: 10 mg - Labs Labs: 06/26/17 09:45 06/26/17 09:45 PT 11.5 SECONDS (9.4-12.5) 06/23/17 12:19 INR 1.00 (0.93-1.08) 06/23/17 12:19 APTT 27.7 Seconds (25.1-36.5) 06/23/17 12:19 - Constitutional Appears: Well, No Acute Distress - Head Exam Head Exam: ATRAUMATIC, NORMOCEPHALIC - ENT Exam ENT Exam: Mucous Membranes Moist - Respiratory Exam Respiratory Exam: NORMAL BREATHING PATTERN - Cardiovascular Exam Cardiovascular Exam: RRR - GI/Abdominal Exam GI & Abdominal Exam: Soft. absent: Distended, Tenderness, Rebound - Neurological Exam Neurological Exam: Alert, Awake, Oriented x3 - Skin Skin Exam: Dry, Warm Assessment and Plan - Assessment and Plan (Free Text) Assessment: 71F with sigmoid colon mass and C-diff colitis Plan: - pt will be treated for her C-diff with PO vanco - As per discussion with pt and family, they would like her to go to [facility] for further treatment - Per discussion with Dr. Merlos, pt is clear to go home on PO vanco and instructed to follow a liquid/puree diet - no surgical intervention planned here since family will be following up at [facility] - plan discussed with Dr. Ben Hansen, PGY-3 Surgery
[2017-06-27] MEDS: metroNIDAZOLE IV 500 mg/100 ml 500 MG/100 ML BAG IVPB SCH (05:40)
[2017-06-27 09:45] LABS: HEMOGLOBIN 12.6 g/dL (12.0-16.0); MEAN CELL VOLUME 84.4 fl (80.0-105.0); MEAN CORPUSCULAR HEMOGLOBIN 27.7 pg (25.0-35.0); MEAN CORPUSCULAR HGB CONC 32.8 g/dl (31.0-37.0); MEAN PLATELET VOLUME 9.5 fl (7.0-11.0); RBC 4.55 10^6/uL (3.5-6.1); RED CELL DISTRIBUTION WIDTH 15.6 % (11.5-14.5); WHITE BLOOD COUNT 7.6 10^3/ul (4.5-11.0)
[2017-06-27 10:01] LABS: BLOOD UREA NITROGEN 8 mg/dL (7-21); GFR AFRICAN-AMERICAN > 60; GFR NON-AFRICAN AMERICAN > 60
[2017-06-27] MEDS: Vancomycin 25 MG/ML PO SCH ×4 (10:53→22:21)
[2017-06-27] MEDS: Potassium Chloride 20 mEq ER Tab PO SCH (10:53)
--- NOTE | 2017-06-27 11:14 | CP.PCM.PN ---
Subjective - Date & Time of Evaluation Date of Evaluation: 06/27/17 Time of Evaluation: 07:00 - Subjective Subjective: Surgery: Dr. Contreras Pt seen and examined. No acute overnight events. Pt states she feels well and denies any abdominal pain. She states she is having some loose BMs but not as severe as before. Denies blood in stool. Denies N/V, F/C. Objective - Vital Signs/Intake and Output Vital Signs (last 24 hours): Temp Pulse Resp BP Pulse Ox 97.8 F 61 18 122/68 96 06/27/17 08:23 06/27/17 08:23 06/27/17 08:23 06/27/17 10:54 06/27/17 08:23 Intake and Output: 06/27/17 06/27/17 06:59 18:59 Intake Total 1400 Balance 1400 - Medications Medications: Current Medications Alprazolam (Xanax) 0.25 mg PO Q6 PRN; Protocol PRN Reason: Anxiety Stop: 07/03/17 00:01 Last Admin: 06/25/17 21:53 Dose: 0.25 mg Amlodipine Besylate (Norvasc) 5 mg PO DAILY [facility] Last Admin: 06/27/17 10:54 Dose: 5 mg Metronidazole (Flagyl) 500 mg in 100 mls @ 100 mls/hr IVPB Q8 [facility] PRN Reason: Protocol Last Admin: 06/27/17 05:40 Dose: 100 mls/hr Pantoprazole Sodium (Protonix Inj) 40 mg IVP DAILY [facility] Last Admin: 06/27/17 10:53 Dose: 40 mg Potassium Chloride (K-Dur 20 Meq Er Tab) 20 meq PO DAILY [facility] Last Admin: 06/27/17 10:53 Dose: 20 meq Vancomycin HCl (Vancocin 25 Mg/Ml (Oral Use)) 250 mg PO QID [facility] PRN Reason: Protocol Last Admin: 06/27/17 10:53 Dose: 250 mg Zolpidem Tartrate (Ambien) 10 mg PO HS [facility] PRN Reason: Protocol Last Admin: 06/26/17 22:54 Dose: 10 mg - Labs Labs: 06/27/17 09:30 06/27/17 09:30 PT 11.5 SECONDS (9.4-12.5) 06/23/17 12:19 INR 1.00 (0.93-1.08) 06/23/17 12:19 APTT 27.7 Seconds (25.1-36.5) 06/23/17 12:19 - Constitutional Appears: Well, No Acute Distress - Head Exam Head Exam: ATRAUMATIC, NORMOCEPHALIC - Eye Exam Eye Exam: Normal appearance - ENT Exam ENT Exam: Mucous Membranes Moist - Respiratory Exam Respiratory Exam: NORMAL BREATHING PATTERN - Cardiovascular Exam Cardiovascular Exam: RRR - GI/Abdominal Exam GI & Abdominal Exam: Soft. absent: Distended, Tenderness - Neurological Exam Neurological Exam: Alert, Awake, Oriented x3 - Skin Skin Exam: Dry, Warm Assessment and Plan - Assessment and Plan (Free Text) Assessment: 71F with sigmoid colon mass and C-diff colitis Plan: - Pt and family are now amenable to surgery/medical management at [facility] [place] - Currently pt is being treated for her colitis, once that resolves we will plan for surgery - cont PO vanc per ID recs - plan discussed with Dr. Hazel and Dr. Ben Hansen, PGY-3 Surgery
--- NOTE | 2017-06-27 11:45 | PN ---
DATE: 06/27/2017 SUBJECTIVE: The patient is sitting in a chair. She still has intermittent loose stools. She denies any abdominal pain or rectal bleeding. PHYSICAL EXAMINATION VITAL SIGNS: Reveal temperature of 97.8, blood pressure 122/68, heart rate 61. HEENT: Reveals sclerae to be white. Conjunctivae pink. NECK: Supple. CHEST: Lungs are clear. HEART: Reveals regular rate and rhythm. ABDOMEN: Soft, nontender. EXTREMITIES: Show no edema. LABORATORY DATA: Reveal blood sugar 168, BUN 8, creatinine 0.7, hemoglobin of 12.6. 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 IMPRESSION: 1. Large polypoid lesion in the sigmoid colon. Biopsy showed tubulovillous adenoma, but I suspect that there is still a chance that there is underlying malignancy, this lesion was circumferential and nearly obstructing. 2. Pseudomembranous colitis. RECOMMENDATIONS: 1. Continue vancomycin 250 mg p.o. 4 times a day. 2. Soft, low residue diet. I have informed the patient and her of the pathologic findings. She is aware that there may still be an underlying malignancy. She knows that she will need sigmoid colon resection once her pseudomembranous colitis is treated. She has decided to stay locally for her colon resection. Jaden Merlos MD
[2017-06-27] MEDS ORDERED: Lidocaine 2% Jelly (30 ml) TOP ONE (21:38)
--- NOTE | 2017-06-27 21:38 | CP.PCM.PN ---
Subjective - Date & Time of Evaluation Date of Evaluation: 06/27/17 Time of Evaluation: 21:36 - Subjective Subjective: soreness in rectal area. sigmoidoscopy 2 days ago. Rx, xylocaine visocus Objective - Vital Signs/Intake and Output Vital Signs (last 24 hours): Temp Pulse Resp BP Pulse Ox 97.8 F 61 18 122/68 96 06/27/17 08:23 06/27/17 08:23 06/27/17 08:23 06/27/17 10:54 06/27/17 08:23 Intake and Output: 06/27/17 06/28/17 18:59 06:59 Intake Total 760 Balance 760 - Medications Medications: Current Medications Alprazolam (Xanax) 0.25 mg PO Q6 PRN; Protocol PRN Reason: Anxiety Stop: 07/03/17 00:01 Last Admin: 06/25/17 21:53 Dose: 0.25 mg Amlodipine Besylate (Norvasc) 5 mg PO DAILY [facility] Last Admin: 06/27/17 10:54 Dose: 5 mg Pantoprazole Sodium (Protonix Inj) 40 mg IVP DAILY [facility] Last Admin: 06/27/17 10:53 Dose: 40 mg Potassium Chloride (K-Dur 20 Meq Er Tab) 20 meq PO DAILY [facility] Last Admin: 06/27/17 10:53 Dose: 20 meq Vancomycin HCl (Vancocin 25 Mg/Ml (Oral Use)) 250 mg PO QID [facility] PRN Reason: Protocol Last Admin: 06/27/17 18:52 Dose: 250 mg Zolpidem Tartrate (Ambien) 10 mg PO HS [facility] PRN Reason: Protocol Last Admin: 06/26/17 22:54 Dose: 10 mg - Labs Labs: 06/27/17 09:30 06/27/17 09:30 PT 11.5 SECONDS (9.4-12.5) 06/23/17 12:19 INR 1.00 (0.93-1.08) 06/23/17 12:19 APTT 27.7 Seconds (25.1-36.5) 06/23/17 12:19
--- NOTE | 2017-06-28 06:57 | CON ---
DATE: 06/27/2017 The patient is in room 578, bed 1. CHIEF COMPLAINT: Weakness times several days. HISTORY OF PRESENT ILLNESS: This is a 71-year-old female with a history hypertension, osteoarthritis, hydronephrosis, and insomnia who has also past medical history significant for psychiatric disease, history of tubal ligation, and cholecystectomy who is admitted with a diagnosis of gastrointestinal hemorrhage. The patient had a colonoscopy that showed a tumor which is causing partial obstruction. 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 The patient also has diarrhea. The patient has antibiotic as outpatient, and the patient was seen by Dr. Ludin Cowart. The patient was given Augmentin as an outpatient for weakness, lightheadedness, and flu-like symptoms, however was admitted with blood in stool and found to have a positive stool for C. difficile. ALLERGIES: THE PATIENT IS ALLERGIC TO LEVAQUIN AND MOXIFLOXACIN. PHYSICAL EXAMINATION: GENERAL: The patient is in bed, in no acute distress, nontoxic. VITAL SIGNS: Temperature of 98, heart rate of 76, respiratory rate of 18, blood pressure is 130/80. HEENT: Examination of HEENT is unremarkable. NECK: Supple. LUNGS: Decreased breath sounds. HEART: Normal S1 and S2. ABDOMEN: Soft, nontender. LABORATORY DATA: Reveals a white count of 7.6, hemoglobin of 12, platelets of 273, coagulation is noted. Chemistries reveal a BUN of 8, creatinine of 0.7. Microbiology reveals the stool for C. diff antigen is positive antigen, negative toxin. ASSESSMENT AND PLAN: This is a 71-year-old female with hypertension, osteoarthritis, hydronephrosis and was on Augmentin as an outpatient, now presenting with bloody diarrhea. Bloody diarrhea has been reported secondary after use of Augmentin and with discontinuation of the antibiotic, symptoms have resolved. Klebsiella oxytoca from stool produce, cytotoxin by HEp-2 cell assay; thickening in the terminal ileum, right colon residual submucosal hemorrhages were seen; however, this patient's hemorrhagic colitis carriage of a strain producing oxytocin was correlated with previous receipt of antimicrobial such as Augmentin. This patient does have an obstructive tumor which will need resection, however, antibiotic associated diarrhea and hemorrhagic colitis associated with gastroenteritis with Klebsiella oxytoca responds to stop in the antibiotics. If there is nonsteroidal associated with . We will follow closely with you. At this time, we will recommend treating patient with p.o. vancomycin for the C. diff antigen for 14 days 250 mg as discussed with Dr. Hazel and Dr. Otoniel Contreras, patient for a possible colon resection as an outpatient. Marino Smith MD
[2017-06-28 07:46] LABS: HEMOGLOBIN 11.8 g/dL (12.0-16.0); MEAN CELL VOLUME 84.9 fl (80.0-105.0); MEAN CORPUSCULAR HEMOGLOBIN 26.6 pg (25.0-35.0); MEAN CORPUSCULAR HGB CONC 31.3 g/dl (31.0-37.0); MEAN PLATELET VOLUME 9.4 fl (7.0-11.0); RBC 4.44 10^6/uL (3.5-6.1); RED CELL DISTRIBUTION WIDTH 15.7 % (11.5-14.5); WHITE BLOOD COUNT 7.1 10^3/ul (4.5-11.0)
[2017-06-28] MEDS ORDERED: Pantoprazole 40 mg EC Tab PO SCH ×2 (08:50→10:00)
[2017-06-28] MEDS: Potassium Chloride 20 mEq ER Tab PO SCH (09:43)
[2017-06-28] MEDS: Vancomycin 25 MG/ML PO SCH (09:44)
[2017-06-28 13:13] VITALS: BP 146/76; PULSE 92; RESP 18; TEMP 97.6; O2SAT 100
--- NOTE | 2017-06-28 15:45 | PN ---
DATE: 06/28/2017 SUBJECTIVE: The patient is sitting in the chair. She is tolerating solid foods. She still has some lose bowel movements, but they are less watery. She denies any rectal bleeding. MEDICATIONS: Currently include Ambien 10 mg p.o. at night, K-Dur 20 mg once a day, Norvasc 5 mg daily, pantoprazole 40 mg once a day, vancomycin 250 mg four times a day, and Xanax 0.25 mg every six hours as needed. PHYSICAL EXAMINATION: VITAL SIGNS: Temperature is 97.8, blood pressure 132/67, heart rate is 61. HEENT: Reveals sclerae to be white. Conjunctiva pink. NECK: Supple. CHEST: Lungs are clear. HEART: Exam reveals regular rate and rhythm. ABDOMEN: Soft, nontender. EXTREMITIES: Show no edema. LABORATORY DATA: Reveal white blood cell count 7.1, hemoglobin 11.8. Chemistries reveal normal electrolytes. IMPRESSION: 1. 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 2. Pseudomembranous colitis. RECOMMENDATIONS: 1. Continue vancomycin 250 mg p.o. q.i.d. for 14-day course. 2. Elective sigmoid colon resection after pseudomembranous colitis is treated. The patient is stable from a GI standpoint. No further GI workup is planned. Jaden Merlos MD
[2017-06-29] MEDS ORDERED: Pantoprazole 40 mg EC Tab PO SCH (06:00)
--- NOTE | 2017-06-30 22:59 | CP.PCM.PN ---
Subjective - Date & Time of Evaluation Date of Evaluation: 06/24/17 Time of Evaluation: 10:00 - Subjective Subjective: Comfortable in bed. No abdominal pain. No loose stools. BP controlled on current meds. ambulating in room. Currently NPO. Objective - Vital Signs/Intake and Output Vital Signs (last 24 hours): Temp Pulse Resp BP Pulse Ox 97.6 F 92 H 18 146/76 100 06/28/17 12:20 06/28/17 12:20 06/28/17 12:20 06/28/17 12:20 06/28/17 12:20 - Labs Labs: 06/28/17 07:20 06/27/17 09:30 PT 11.5 SECONDS (9.4-12.5) 06/23/17 12:19 INR 1.00 (0.93-1.08) 06/23/17 12:19 APTT 27.7 Seconds (25.1-36.5) 06/23/17 12:19 - Constitutional Appears: Well, Non-toxic - Head Exam Head Exam: ATRAUMATIC, NORMAL INSPECTION, NORMOCEPHALIC - Eye Exam Eye Exam: Normal appearance Pupil Exam: NORMAL ACCOMODATION - ENT Exam ENT Exam: Mucous Membranes Moist, Normal Exam - Neck Exam Neck Exam: Normal Inspection - Respiratory Exam Respiratory Exam: NORMAL BREATHING PATTERN - Cardiovascular Exam Cardiovascular Exam: REGULAR RHYTHM, +S1, +S2 - GI/Abdominal Exam GI & Abdominal Exam: Soft, Normal Bowel Sounds - Extremities Exam Extremities Exam: Normal Capillary Refill, Normal Inspection - Back Exam Back Exam: NORMAL INSPECTION - Neurological Exam Neurological Exam: Alert, Awake, CN II-XII Intact, Normal Gait, Oriented x3 - Psychiatric Exam Psychiatric exam: Normal Affect - Skin Skin Exam: Normal Color, Warm Assessment and Plan - Assessment and Plan (Free Text) Assessment: 1. GI bleed 2. Diarrhea 3. Hypertension 4. anemia plan : evaluated by surgery, GI. Dr. Contreras, Dr. Merlos note reviewed. Sigmoidoscopy planned for tomorrow . keep NPO. IVF at 80 cc/hr NS protonix 40 mg IV. C-diff sent on stool- pending. No abdominal pain. Discussed the plan with the family, bedside. .
--- NOTE | 2017-06-30 23:05 | CP.PCM.PN ---
Subjective - Date & Time of Evaluation Date of Evaluation: 06/25/17 Time of Evaluation: 11:00 - Subjective Subjective: Comfortable in bed. colonoscopy done today, showed large sigmoid mass . Multiple biopsies taken. No bleeding per rectum. No abdominal pain. No nausea. Objective - Vital Signs/Intake and Output Vital Signs (last 24 hours): Temp Pulse Resp BP Pulse Ox 97.6 F 92 H 18 146/76 100 06/28/17 12:20 06/28/17 12:20 06/28/17 12:20 06/28/17 12:20 06/28/17 12:20 - Labs Labs: 06/28/17 07:20 06/27/17 09:30 PT 11.5 SECONDS (9.4-12.5) 06/23/17 12:19 INR 1.00 (0.93-1.08) 06/23/17 12:19 APTT 27.7 Seconds (25.1-36.5) 06/23/17 12:19 - Constitutional Appears: Well, Non-toxic - Head Exam Head Exam: NORMAL INSPECTION, NORMOCEPHALIC - Eye Exam Eye Exam: Normal appearance - Neck Exam Neck Exam: Normal Inspection - Respiratory Exam Respiratory Exam: Clear to Ausculation Bilateral, NORMAL BREATHING PATTERN - Cardiovascular Exam Cardiovascular Exam: REGULAR RHYTHM, +S1, +S2 - GI/Abdominal Exam GI & Abdominal Exam: Soft, Normal Bowel Sounds - Extremities Exam Extremities Exam: Normal Inspection - Back Exam Back Exam: NORMAL INSPECTION - Neurological Exam Neurological Exam: Alert, Oriented x3 - Psychiatric Exam Psychiatric exam: Normal Affect - Skin Skin Exam: Normal Color, Warm Assessment and Plan - Assessment and Plan (Free Text) Assessment: 1. GI bleed 2. Diarrhea 3. Hypertension 4. anemia 5. large sigmoid mass suspicious for malignancy plan : evaluated by surgery, GI. Dr. Contreras, Dr. Merlos note reviewed. Sigmoidoscopy showed large sigmoid mass. Biopsy taken. Path pending. keep NPO. IVF at 80 cc/hr NS protonix 40 mg IV. C-diff sent on stool- pending. No abdominal pain. Hb/Hct stable.
--- NOTE | 2017-06-30 23:13 | CP.PCM.PN ---
Subjective - Date & Time of Evaluation Date of Evaluation: 06/26/17 Time of Evaluation: 11:00 - Subjective Subjective: Comfortable in bed. No bleeding per rectum. No dark colored stools. large sigmoid mass, path awaited. CT abdomen done yesterday showed colitis of descending colon. . Currently NPO. Objective - Vital Signs/Intake and Output Vital Signs (last 24 hours): Temp Pulse Resp BP Pulse Ox 97.6 F 92 H 18 146/76 100 06/28/17 12:20 06/28/17 12:20 06/28/17 12:20 06/28/17 12:20 06/28/17 12:20 - Labs Labs: 06/28/17 07:20 06/27/17 09:30 PT 11.5 SECONDS (9.4-12.5) 06/23/17 12:19 INR 1.00 (0.93-1.08) 06/23/17 12:19 APTT 27.7 Seconds (25.1-36.5) 06/23/17 12:19 - Constitutional Appears: Well, Non-toxic - Head Exam Head Exam: ATRAUMATIC, NORMAL INSPECTION, NORMOCEPHALIC - Eye Exam Eye Exam: Normal appearance Pupil Exam: NORMAL ACCOMODATION - Neck Exam Neck Exam: Normal Inspection - Respiratory Exam Respiratory Exam: Clear to Ausculation Bilateral, NORMAL BREATHING PATTERN - Cardiovascular Exam Cardiovascular Exam: REGULAR RHYTHM, +S1, +S2 - GI/Abdominal Exam GI & Abdominal Exam: Soft, Normal Bowel Sounds - Extremities Exam Extremities Exam: Normal Inspection - Back Exam Back Exam: NORMAL INSPECTION - Neurological Exam Neurological Exam: Alert, Awake, Oriented x3 - Psychiatric Exam Psychiatric exam: Normal Mood - Skin Skin Exam: Normal Color, Warm Assessment and Plan - Assessment and Plan (Free Text) Assessment: 1. GI bleed 2. Diarrhea 3. Hypertension 4. anemia 5. large sigmoid mass suspicious for malignancy plan : Sigmoidoscopy showed large sigmoid mass. Biopsy taken. Path pending. advance diet, clear liquids today. IVF at 80 cc/hr NS protonix 40 mg IV. C-diff sent on stool- pending. No abdominal pain. Hb/Hct stable. Family undecided about surgery. They are planning to take her to [facility] . GC stable.
--- NOTE | 2017-06-30 23:21 | CP.PCM.PN ---
Subjective - Date & Time of Evaluation Date of Evaluation: 06/27/17 Time of Evaluation: 11:00 - Subjective Subjective: No complaints. No diarrhea. No abdominal pain. C-diff positive. path - tubulovillous adenoma. BP -stable. Hb stable. tolerating clear liquids. Objective - Vital Signs/Intake and Output Vital Signs (last 24 hours): Temp Pulse Resp BP Pulse Ox 97.6 F 92 H 18 146/76 100 06/28/17 12:20 06/28/17 12:20 06/28/17 12:20 06/28/17 12:20 06/28/17 12:20 - Labs Labs: 06/28/17 07:20 06/27/17 09:30 PT 11.5 SECONDS (9.4-12.5) 06/23/17 12:19 INR 1.00 (0.93-1.08) 06/23/17 12:19 APTT 27.7 Seconds (25.1-36.5) 06/23/17 12:19 - Constitutional Appears: Well, Non-toxic - Head Exam Head Exam: ATRAUMATIC, NORMAL INSPECTION, NORMOCEPHALIC - Eye Exam Eye Exam: Normal appearance Pupil Exam: NORMAL ACCOMODATION - ENT Exam ENT Exam: Mucous Membranes Moist - Neck Exam Neck Exam: Normal Inspection - Respiratory Exam Respiratory Exam: Clear to Ausculation Bilateral, NORMAL BREATHING PATTERN - Cardiovascular Exam Cardiovascular Exam: REGULAR RHYTHM, +S1, +S2 - GI/Abdominal Exam GI & Abdominal Exam: Soft, Normal Bowel Sounds - Extremities Exam Extremities Exam: Normal Inspection - Back Exam Back Exam: NORMAL INSPECTION - Neurological Exam Neurological Exam: Alert, Awake, CN II-XII Intact, Oriented x3 - Psychiatric Exam Psychiatric exam: Normal Affect - Skin Skin Exam: Normal Color, Warm Assessment and Plan - Assessment and Plan (Free Text) Assessment: 1. GI bleed 2. Diarrhea 3. Hypertension 4. anemia 5. large sigmoid mass suspicious for malignancy plan : 1. large sigmoid obstructing mass suspicious for malignancy. Path showed benign pathology. She still needs resection. Discuss with the family that malignancy cannot be ruled out yet as it is large mass, obstructing, bleeding . C-diff positive. vancomycin 250 mg PO QID. ID consult Dr. Davila requested. Blood counts stable. Discussed with the son about discharge tomorrow. Surgery will be planned after 2 weeks of PO vanco. advance diet to soft . Discharge tomorrow planned.
--- NOTE | 2017-07-01 00:01 | DS ---
DATE OF DISCHARGE: 06/28/2017 DISCHARGE DIAGNOSES: 1. Large rectosigmoid mass. 2. Gastrointestinal bleeding. 3. Clostridium difficile colitis. 4. Hypertension. 5. Mild anemia. HOSPITAL COURSE: The patient was admitted with diarrhea and bleeding per rectum. She was evaluated for GI bleeding. She was treated with IV antibiotics including ceftriaxone and Flagyl. She was evaluated by GI and Surgery. Colonoscopy showed large rectosigmoid mass suspicious for malignancy. Biopsy was taken. 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 She developed C. diff colitis. C. diff toxin positive, antigen negative. She was treated with p.o. vancomycin. She is being discharged in stable condition. Surgery to be planned as an outpatient with Dr. Contreras. The patient's family wants to take her to [facility]. Had a lengthy discussion with the son explaining, including the results of biopsy which showed benign lesion. Given the size of the mass, malignancy cannot be ruled out.. She is currently stable. PHYSICAL EXAMINATION: GENERAL: Comfortable in bed, in no acute distress. VITAL SIGNS: Temperature 97.8, heart rate 80 per minute, blood pressure 120/70, respiratory rate 18 per minute. NECK: No lymphadenopathy. CHEST: Air entry present and equal bilaterally. No added sound. CARDIOVASCULAR: S1 and S2 normal. No murmur, no gallop. ABDOMEN: Soft, nontender. No hepatosplenomegaly. EXTREMITIES: No edema. CORE SHAPER TOP: Alert and oriented x3. No focal sensory or motor deficit. SKIN: No petechiae, no rash. CONDITION ON DISCHARGE: Stable. DISPOSITION: Discharge home. DISCHARGE MEDICATIONS: Vancomycin 250 mg p.o. four times a day for 2 weeks. Follow up with Dr. Contreras, follow up with Dr. Merlos, follow up with Dr. Mcbride in 1 week. She was advised to present to ER if she develops bleeding or abdominal pain. Family communicated, they are taking her to [facility] where she will undergo surgery with a surgeon, they have spoken to already. All prescriptions given to the patient. Time spent in preparing discharge and coordinating care 60 minutes. Nadia Hazel MD
== END 2017-06-28 14:39 | disposition home or self-care (01) | DRG 373 ==
LOC: ED 12:00 → ERH 13:37 → 5RSO 06-24 00:54 → OBSVTOIN 06-25 14:22 → 5RSO 06-26 14:18
PROVIDERS: ADMIT Internal Medicine Medical Oncology; ATTEND Internal Medicine Medical Oncology
PROC: 3E0H8KZ Introduction of Other Diagnostic Substance into Lower GI, Via Natural or Artificial Opening Endoscopic (ICD-10-PCS; 2017-06-25)
PROC: 0DBN8ZX Excision of Sigmoid Colon, Via Natural or Artificial Opening Endoscopic, Diagnostic (ICD-10-PCS; principal; 2017-06-25 13:00)
DX: A04.72 Enterocolitis due to Clostridium difficile, not specified as recurrent (principal); D12.5 Benign neoplasm of sigmoid colon; D64.9 Anemia, unspecified; I10 Essential (primary) hypertension; K57.30 Diverticulosis of large intestine without perforation or abscess without bleeding; G47.00 Insomnia, unspecified; M19.90 Unspecified osteoarthritis, unspecified site; F41.9 Anxiety disorder, unspecified; Z90.49 Acquired absence of other specified parts of digestive tract; Z98.51 Tubal ligation status

== ENCOUNTER 2018-10-07 09:06 | Outpatient (CLI) | payer MEDICARE | END 2018-10-07 09:07 | disposition home or self-care (01) | LOC: RAD 09:06 | DX: Z12.31 Encounter for screening mammogram for malignant neoplasm of breast (principal) ==